=== PATIENT | female | born 1945 | race Caucasian/White ===

== ENCOUNTER 2018-12-02 16:48 | Emergency (ER) | payer MEDICARE, OTHER ==
[2018-12-02 17:28] VITALS: BP 155/86
--- NOTE | 2018-12-02 17:41 | UC ---
Hand/Wrist HPI - HPI Summary HPI Summary: 73-year-old woman comes in with a chief complaint of right wrist pain. This morning while patient was making her bed she tripped on an object and fell forward she landed on her left side but also injured her right wrist. She did hit her forehead. Denies any loss of consciousness change in vision. Denies any head pain or neck pain at this time. She is not on a blood thinner. Denies any pain in the left hip where she landed. She tells me that the only pain that remains is in the right wrist. Primarily at the base of the thumb. No weakness or numbness no skin breaks. - History Of Current Complaint Chief Complaint: UCGeneralIllness Stated Complaint: RT WRIST CONCERN Time Seen by Provider: 12/02/18 17:29 Pain Intensity: 4 - Allergies/Home Medications Allergies/Adverse Reactions: Allergies Allergy/AdvReac Type Severity Reaction Status Date / Time No Known Allergies Allergy Verified 12/02/18 17:28 Home Medications: Home Medications Famciclovir TAB(NF) [Famvir TAB(NF)] 1 tab PO DAILY 12/02/18 [History Confirmed 12/02/18] Losartan TAB* [Cozaar TAB*] 1 tab PO DAILY 12/02/18 [History Confirmed 12/02/18] Tiotropium CAP.INH* [Spiriva CAP.INH*] 2 puff INH DAILY 12/02/18 [History Confirmed 12/02/18] PMH/Surg Hx/FS Hx/Imm Hx Previously Healthy: Yes Cardiovascular History: Hypertension - Surgical History Surgical History: Yes Surgery Procedure, Year, and Place: appendectomy 31yo - Family History Known Family History: Positive: Non-Contributory - Social History Alcohol Use: None Substance Use Type: None Smoking Status (MU): Former Smoker When Did the Patient Quit Smoking/Using Tobacco: Pt quit when was 45yo Review of Systems All Other Systems Reviewed And Are Negative: Yes Constitutional: Positive: Negative Skin: Positive: Negative Eyes: Positive: Negative ENT: Positive: Negative Respiratory: Positive: Negative Cardiovascular: Positive: Negative Gastrointestinal: Positive: Negative Motor: Positive: Negative Neurovascular: Positive: Negative Musculoskeletal: Positive: Other: - SEE HPI Neurological: Positive: Negative Psychological: Positive: Negative Is Patient Immunocompromised?: No Physical Exam Triage Information Reviewed: Yes Appearance: Well-Appearing, No Pain Distress, Well-Nourished Vital Signs: Initial Vital Signs Temp 97.8 F 12/02/18 17:23 Pulse 70 12/02/18 17:23 Resp 10 12/02/18 17:23 BP 155/86 12/02/18 17:23 Pulse Ox 98 12/02/18 17:23 Vital Signs Reviewed: Yes Eye Exam: Normal Eyes: Positive: Conjunctiva Clear, Other: - PERRLA/EOMI,NO PHOTOPHOBIA ENT: Positive: TMs normal - NO HEMOTYMPANUM Neck: Positive: Supple, Nontender Respiratory: Positive: Lungs clear, Normal breath sounds, No respiratory distress Cardiovascular: Positive: RRR Musculoskeletal: Positive: Other: - Patient is tender to palpation of the right wrist at the base of the right thumb into the snuffbox and distal radius. Wrist has good range of motion. Fingers and elbow and right shoulder although full range of motion full-strength no sensation deficit normal capillary refill normal radial pulses. Neurological: Positive: Alert, Muscle Tone Normal, Other: - NO FOCAL NEUROLOGIC DEFICIT Psychological Exam: Normal Psychological: Positive: Normal Response To Family, Age Appropriate Behavior Skin Exam: Normal Hand/Wrist Course/Dx - Course Course Of Treatment: Patient Name: SEAMUS BONNER Medical Record#: [id number] Ordering Physician: Keith Sebastian MD Acct.#: [id number] : 1945 Age: 73 Sex: F Location: [facility] Exam Date: 12/02/181735 ADM Status: REG ER Order Information: WRIST RIGHT 3+ VWS Accession Number: [id number] CPT: 11124 Indication: Right wrist pain. 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 <Electronically signed by Flor Sanon MD in [place]> 12/02/18 745 I discussed the x-rays with the patient and her family. Patient was placed in a thumb spica splint by nursing here in clinic and the patient is neurovascularly intact after placement of thumb spica splint. Plan is to continue keeping #10 to follow-up with orthopedics. - Differential Dx/Diagnosis Provider Diagnosis: Right wrist pain Discharge - Sign-Out/Discharge Documenting (check all that apply): Patient Departure All imaging exams completed and their final reports reviewed: Yes - Discharge Plan Condition: Stable Disposition: HOME Patient Education Materials: Wrist Injury (ED) Referrals: Zi Dalton MD [Medical Doctor] - Additional Instructions: FOLLOW UP WITH DR DALTON, ORTHOPEDICS. GET REEVALUATED SOONER IF WORSE OR ANY QUESTIONS OR CONCERNS. - Billing Disposition and Condition Condition: STABLE Disposition: Home
== END 2018-12-02 18:23 | disposition home or self-care (01) ==
LOC: UCCORT 16:48
DX: M25.531 Pain in right wrist (principal); W18.09XA Striking against other object with subsequent fall, initial encounter; Y93.89 Activity, other specified; Y92.003 Bedroom of unspecified non-institutional (private) residence as the place of occurrence of the external cause; I10 Essential (primary) hypertension; Z87.891 Personal history of nicotine dependence
CPT/HCPCS: 99202; G0463

== ENCOUNTER 2019-03-08 08:22 | Emergency (ER) | payer MEDICARE, OTHER ==
[2019-03-08 09:00] VITALS: BP 151/87
--- NOTE | 2019-03-08 09:13 | UC ---
Respiratory Complaint HPI - HPI Summary HPI Summary: Pt presents to with 36 hour head congestion, sore throat and cough. Pt with increased wheezing - has taken her spiriva without relief. Does not have albuterol. No fever. Pt has taken - History of Current Complaint Chief Complaint: UCRespiratory Stated Complaint: CHEST CONGESTION, COUGH Time Seen by Provider: 03/08/19 08:59 Hx Obtained From: Patient Pain Intensity: 0 - Allergies/Home Medications Allergies/Adverse Reactions: Allergies Allergy/AdvReac Type Severity Reaction Status Date / Time No Known Allergies Allergy Verified 03/08/19 09:00 PMH/Surg Hx/FS Hx/Imm Hx Previously Healthy: Yes - Surgical History Surgical History: Yes Surgery Procedure, Year, and Place: appendectomy 31yo - Family History Known Family History: Positive: Non-Contributory - Social History Occupation: Retired Lives: With Family Alcohol Use: None Substance Use Type: None Smoking Status (MU): Former Smoker When Did the Patient Quit Smoking/Using Tobacco: Pt quit when was 45yo Review of Systems All Other Systems Reviewed And Are Negative: Yes Constitutional: Positive: Fatigue ENT: Positive: Sore Throat, Sinus Congestion Respiratory: Positive: Cough. Negative: Shortness Of Breath Cardiovascular: Positive: Negative Gastrointestinal: Positive: Negative Physical Exam - Summary Physical Exam Summary: Vital Signs Reviewed: Yes A+Ox3, no distress, intermittent cough Eyes: Conjunctiva Clear, CECY. EOM intact and full ENT: Hearing grossly normal TM x 2 clear, sinus congestion, boggy, PND, mmoist , uvula midline, no exudate, mild. erythema Neck: Positive: Supple Respiratory: Positive: No respiratory distress, No accessory muscle use, coarse cough, scattered wheeze Cardiovascular: RRR nl s1, s2 no m/r CBT <2 sec abd soft + BS nt/nd no guarding, no distension Musculoskeletal Exam: TONG x 4 without difficulty Strength Intact, ROM Intact Neurological: Positive: Alert, + sensation throughout Psychological: Positive: Normal Response To Family Skin: Positive: no rash, no ecchymosis Triage Information Reviewed: Yes Vital Signs: Initial Vital Signs Temp 99.6 F 03/08/19 08:57 Pulse 83 03/08/19 08:57 Resp 16 03/08/19 08:57 BP 151/87 03/08/19 08:57 Pulse Ox 98 03/08/19 08:57 Diagnostics - Radiology No standard instances Radiology Interpretation Completed By: Radiologist - Patient Name: SEAMUS BONNER Medical Record#: [id number] Ordering Physician: Hilary Figueroa MD Acct.#: [id number] : Age: 73 Sex: F Location: [facility] [place] Exam Date: 03/08/19917 ADM Status: REG ER Order Information: CHEST PA & LAT 2 VWS Accession Number: [id number] CPT: 99241 Indication: Cough, wheezing. 2 views of the chest including dual energy PA views demonstrate no mediastinal shift. Heart is of normal size and configuration. Lungs are clear. IMPRESSION: Hyperinflated lung galdamez without evidence of pneumonia. <Electronically signed by Flor Sanon MD in [place]> 03/08/19942 Dictated By : Flor Sanon MD Dictated Date/Time: 03/08/19941 Transcribed Date/Time: 941 Copy to: CC:Hilary Figueroa MD; Day Gould MD Imaging - [facility] [place] [address] [place] [address] ph ([phone]) ph ([phone] ) ph ([phone]) This report is only to be considered final once signed by the Provider(s) as displayed in the "<Electronically Signed by >" field (s). Absence of a signature indicates the report is in a draft status and still needs to be finalized. In the event this document was created by someone other than the signing Provider, the individual initiating the document will be listed in the "Entered by:" or "Dictated by:" galdamez. 1 of Re-Evaluation - Re-Evaluation First Eval Comment: marked improvement in wheezing, no coughing states feels mohit. will Rx pred, albuterol. OTC allergy med Respiratory Course/Dx - Course Course Of Treatment: Pt presents to with 36 hours of congestion, wheeze, sore throat, head congestion. h/o astham - uses spiriva - no albuterol VSS pt with boggy sinues, pnd cough and wheeze will check strep duoneb reassess elevated BP - history of same - Differential Dx/Diagnosis Provider Diagnosis: Upper respiratory infection Discharge ED - Sign-Out/Discharge Documenting (check all that apply): Patient Departure All imaging exams completed and their final reports reviewed: Yes - Discharge Plan Condition: Stable Disposition: HOME Referrals: Day Gould MD [Primary Care Provider] - Additional Instructions: -stay well hydrated. Drink plenty of non-alcoholic, non-caffinated beverages - take prednisone daily as prescribed - use your inhaler as prescribed - These infections are spread by oral secretions. Do not share eating or drinking utensils. Frequent hand washing is important. Clean items that may get your secretions on them such as cell phones, ipads, computer mouse, television remotes. Once you start to feel better, change your pillowcase and your toothbrush - okay to take over the counter allergy medicine - claritin, jerri, zyrtec - keep your appointment with your doctor as scheduled on . If you have any questions or concerns, contact your doctor or return for re-evaluation - Billing Disposition and Condition Condition: STABLE Disposition: Home
[2019-03-08] MEDS ORDERED: Albuterol/Ipratropium NEB.SOL* Albuterol 2.5 MG/Ipratropium 0.5 MG 3 ML INH ONE (09:18)
== END 2019-03-08 10:10 | disposition home or self-care (01) ==
LOC: UCCORT 08:22
DX: J06.9 Acute upper respiratory infection, unspecified (principal); R53.83 Other fatigue; Z87.891 Personal history of nicotine dependence
CPT/HCPCS: 71046; 87651; 99212; A9270-GY; G0463